=== PATIENT | male | born 1945 | race Caucasian/White ===

== ENCOUNTER 2025-01-06 15:05 | Emergency (ER) | payer OTHER, SELFPAY ==
[2025-01-06 15:12] VITALS: BP 132/80
[2025-01-06 15:49] LABS: % Basophils 0.6 % (0-2); % Eosinophils 0.8 % (0-6); % Immature Granulocytes 0.3 % (0-0.5); % Lymphocytes 38.6 % (20.5-51.1); % Monocytes 12.9 % (1.7-9.3); % Neutrophils 46.8 % (42.2-75.2); Absolute Eosinophils 0.1 10^3/uL (0-0.7); Absolute Lymphocytes 2.4 10^3/uL (1.2-3.4); Absolute Monocytes 0.8 10^3/uL (0.1-0.6); Absolute Neutrophils 2.9 10^3/uL (1.4-6.5); Hematocrit 42.6 % (39.0-52.0); Hemoglobin 13.8 g/dL (13.0-18.0); Mean Corp Hgb Conc. 32.4 g/dL (33.0-37.0); Mean Corpuscular Hgb 31.1 pg (27.0-31.0); Mean Corpuscular Volume 95.9 fL (80.0-94.0); Mean Platelet Volume 9.7 fL (7.4-10.4); Nucleated Red Blood Cells % 0 % (-); Platelet Count 152 10^3/uL (130-400); Red Blood Cell Count 4.44 10^6/uL (4.70-6.10); Red Cell Dist. Width 12.1 % (11.5-14.5); White Blood Cell Count 6.2 10^3/uL (4.8-10.8)
[2025-01-06 15:54] LABS: COVID-19 Antigen Negative (Negative)
[2025-01-06 15:55] LABS: ALT (SGPT) 30 U/L (0-50); AST (SGOT) 26 U/L (17-59); Albumin 4.1 g/dl (3.5-5.0); Alkaline Phosphatase 79 U/L (38-126); Blood Urea Nitrogen 12 mg/dl (9-20); Calcium 8.8 mg/dl (8.4-10.2); Carbon Dioxide 26 mmol/L (22-30); Chloride 98 mmol/L (98-107); Glucose 113 mg/dl (70-99); Potassium 3.9 mmol/L (3.5-5.1); Sodium 133 mmol/L (135-145); Total Protein 6.5 g/dl (6.3-8.2); eGFR > 60.00
[2025-01-06 16:00] VITALS: BP 123/74
[2025-01-06 16:00] LABS: NT-proBNP 731 pg/ml
[2025-01-06] MEDS: DUONEB 3 ML INH (16:46)
[2025-01-06 17:00] VITALS: BP 95/67
--- NOTE | 2025-01-06 17:23 | EDRN ---
Ambulatory pulse ox 97%-98%, pt states he feels much better.
--- NOTE | 2025-01-06 17:23 | ED.GENMED ---
History of Present Illness
General
Chief Complaint: Breathing Problem
Time Seen by Provider: 01/06/25 16:03
History of Present Illness
History of Present Illness:
79-year-old male presents to the emergency department for evaluation of shortness of breath beginning yesterday associated with a productive cough. Also reports mild leg swelling. No fever body aches. Does have moderate chest pain. Prior history
of A-fib, currently on Eliquis. No ill contacts at home. No history of COPD or asthma
Past History
Past History
ED Past Medical History: CAD, HTN and Hypercholesterolemia
ED Past Surgical History: Cholecystectomy and Other (Coronary artery disease status post stents �2 status post right knee replacement)
Social History
Tobacco: Non-smoker
Alcohol: None
Drug: None
Personal:
Living: with family
Employment: Retired
Family History
Family History: Diabetes
Review of Systems
Review of Systems
Allergies reviewed?: Yes
All Other Systems: ROS reviewed and negative except as documented in HPI and ROS
Phy Exam
Physical Exam
Physical Exam:
GEN: Well appearing, NAD, WDWN
Eyes: PERRLA, EOMs intact, no scleral icterus
HENT: NCAT, oral mucosa moist, no JVD, no cervical adenopathy.
Lungs: Slightly tachypneic, expiratory wheezes heard throughout all lung augustin, no accessory muscle use, no rales
Cardiac: Irregular, controlled rate
Abdomen: Protuberant, nontender
Neuro: AO x 3
MSK: No gross deformity or ecchymosis. 1+ pitting edema bilateral lower extremities
Skin: No rashes, petechiae. Normal color, no pallor or jaundice.
Psych: Calm, cooperative, proper hygiene
Scores
Heart Failure Risk
Heart Failure Risk Score: Not Applicable
Course
Orders/Labs/Results
Orders:
Orders
01/06/25 15:06
Electrocardiogram (*1) Urgent
Reason for Study: Shortness of Breath
EKG- Treatment ONCE
01/06/25 15:24
COVID-19 Antigen Urgent
Source: Nasal Swab
Complete Blood Count/With Diff Urgent
Comprehensive Metabolic Panel Urgent
NT-proBNP Urgent
Influenza A+B Rapid Molecular Urgent
ART Source: Nasal Swab
Specimen Description:
01/06/25 16:06
CR Chest - 2 Views Urgent
Comment:
Reason For Exam: cough/SOB
01/06/25 16:37
Ipratropium/Albuterol Sulfate [Duoneb] 3 ml INH R NOW ONE
Abnormal Lab Results
01/06/25
15:24
RBC 4.44 L 10^6/uL
(4.70-6.10)
MCV 95.9 H fL
(80.0-94.0)
MCH 31.1 H pg
(27.0-31.0)
MCHC 32.4 L g/dL
(33.0-37.0)
Absolute Monos (auto) 0.8 H 10^3/uL
(0.1-0.6)
Monocytes % 12.9 H %
(1.7-9.3)
Sodium 133 L mmol/L
(135-145)
Glucose 113 H mg/dl
(70-99)
Total Bilirubin 2.0 H mg/dl
(0.2-1.3)
01/06/25 15:24
01/06/25 15:24
Vital Signs
Initial and Last Documented VS:
Initial Vital Signs
Temp Pulse Resp BP Pulse Ox
97.7 F 103 22 132/80 97
01/06/25 15:12 01/06/25 15:12 01/06/25 15:12 01/06/25 15:12 01/06/25 15:12
Last Documented Vital Signs
Temp Pulse Resp BP Pulse Ox
97.7 F 104 23 95/67 96
01/06/25 15:12 01/06/25 17:15 01/06/25 17:15 01/06/25 17:00 01/06/25 17:15
MDM/Problems Addressed
MDM/Problems Addressed:
79-year-old male presents with shortness of breath. Found to be influenza positive. Chest x-ray not suggestive of CHF and a low BNP is reassuring. Given his cardiovascular risk we will start him on Tamiflu, he was noted to be wheezing and given a
DuoNeb in the ED which resolved his symptoms. Will provide beta agonist inhaler. Patient is also noted to be in controlled rate A-fib, recommend he follow-up with his legislative assistant or primary care physician when flu symptoms have resolved in
roughly 1 week for repeat EKG
*Critical Care Note
Total Time (30-74mins, 75-104mins- exclusive of procedures): Not Applicable
ED Attending Note
-
Portions of this chart may have been created with voice recognition software.� Occasional wrong word or��sound alike� substitutions may have occurred due to the inherent limitations of voice recognition software.
Discharge Plan
Departure
Patient Disposition: Home (Routine Discharge)
Date of Disposition: 01/06/25
Time of Disposition: 17:51
Patient with high blood pressure during this ER visit?: No
Discharge Problem:
Influenza, Rate controlled atrial fibrillation
Instructions: Flu in adults - Discharge instructions
Prescriptions:
New
oseltamivir [Tamiflu] 75 mg capsule
75 mg PO BID 5 Days Qty: 10 0RF
albuterol sulfate 90 mcg/actuation HFA aerosol inhaler
2 puff inhalation QID PRN (Reason: shortness of breath or wheezing) Qty: 6.7 0RF
No Action
atorvastatin 40 MG tablet
40 mg PO QPM Qty: 30 6RF
tamsulosin [Flomax] 0.4 MG capsule
0.4 mg PO QPM
allopurinol 200 mg Tablet
200 mg PO DAILY
carvedilol 12.5 mg Tablet
25 mg PO BID Qty: 120 2RF
Eliquis 5 mg Tablet
5 mg PO BID Qty: 60 0RF
furosemide 40 mg Tablet
40 mg PO BID AT 0800,1600 Qty: 60 0RF
potassium chloride 20 mEq tablet,ER particles/crystals
20 meq PO DAILY Qty: 30 2RF
valsartan 80 mg Tablet
80 mg PO DAILY
Referrals:
Reg Barry DO [Family Provider] -
Interventions
Interventions:
*Risk Screen - Suicide Last Done: 01/06/25 15:12
*General Assessment Last Done: 01/06/25 15:12
*Neglect/Abuse Screening Last Done: 01/06/25 15:12
ED- Fall Risk Assessment Last Done: 01/06/25 16:26
*ED COVID-19 Vaccine History Last Done: 01/06/25 15:12
*Nursing Disposition Last Done: 01/06/25 17:55
ED- Cardiac Assessment Last Done: 01/06/25 16:26
ED- Pulmonary Assessment Last Done: 01/06/25 16:26
Discharge Date and Time
Discharge Date/Time: 01/06/25 18:00
Print Language: OCCITAN
== END 2025-01-06 18:00 | disposition home or self-care (01) ==
LOC: EMR 15:05
PROVIDERS: EMERGENCY PHYSICIAN Emergency Medicine; FAMILY PHYSICIAN Family Medicine
DX: J10.1 Influenza due to other identified influenza virus with other respiratory manifestations (principal); I48.91 Unspecified atrial fibrillation; I25.10 Atherosclerotic heart disease of native coronary artery without angina pectoris; I10 Essential (primary) hypertension; E78.00 Pure hypercholesterolemia, unspecified; Z90.49 Acquired absence of other specified parts of digestive tract; Z95.5 Presence of coronary angioplasty implant and graft; Z79.01 Long term (current) use of anticoagulants; Z11.52 Encounter for screening for COVID-19
CPT/HCPCS: 99285; 94640; 71046; 80053; 83880; 85025; 87502; 87811; 93005

== ENCOUNTER 2025-02-24 07:46 | Day surgery (SDC) | payer OTHER, SELFPAY ==
[2025-02-24] MEDS: ELIQUIS 5 MG PO (08:06)
== END 2025-02-24 09:37 | disposition home or self-care (01) ==
LOC: CATH 07:46
PROVIDERS: ATTENDING PHYSICIAN Student in an Organized Health Care Education/Training Program; FAMILY PHYSICIAN Family Medicine; OTHER PHYSICIAN Internal Medicine Cardiovascular Disease
DX: I48.91 Unspecified atrial fibrillation (principal); I25.10 Atherosclerotic heart disease of native coronary artery without angina pectoris; I10 Essential (primary) hypertension; E78.00 Pure hypercholesterolemia, unspecified; I25.2 Old myocardial infarction; Z83.3 Family history of diabetes mellitus; Z79.82 Long term (current) use of aspirin; Z79.01 Long term (current) use of anticoagulants; Z87.891 Personal history of nicotine dependence; E66.9 Obesity, unspecified; Z68.38 Body mass index [BMI] 38.0-38.9, adult
CPT/HCPCS: 92960; 93005